=== PATIENT | male | born 1940 | race Caucasian/White ===

== ENCOUNTER 2016-12-07 08:00 | Outpatient (CLI) | payer MEDICARE, OTHER ==
[2016-12-07 13:24] LABS: CALCIUM 9.2 mg/dL (8.5-10.3); CREATININE 0.8 mg/dL (0.6-1.2); POTASSIUM 4.5 mmol/L (3.5-5.0)
== END 2016-12-07 08:01 | disposition home or self-care (01) ==
LOC: LAB.WCP 08:00
PROVIDERS: ATTEND Family Medicine
DX: R19.7 Diarrhea, unspecified (principal); R63.4 Abnormal weight loss
CPT/HCPCS: 36415; 80048

== ENCOUNTER 2016-12-10 06:35 | Outpatient (CLI) | payer MEDICARE, OTHER ==
[2016-12-10] MEDS ORDERED: IOPAMIDOL-300 100 ML VIAL IVP ONE (08:20)
--- NOTE | 2016-12-11 08:52 | CT Report ---
EXAM: CT ABDOMEN WITHOUT AND WITH CONTRAST EXAM DATE: 12/10/2016 08:01 AM. HISTORY: WEIGHT LOSS. COMPARISON: Previous exam of 12/03/2010. TECHNIQUE: Routine helical CT imaging was performed through the abdomen before and after administrati on of IV contrast: 100 cc of Isovue-300. Enteric contrast: Yes. Reconstruction: Coronal and sagittal. In accordance with CT protocol optimization, one or more of the following dose reduction techniques w ere utilized for this exam: automated exposure control, adjustment of mA and/or KV based on patient s ize, or use of iterative reconstructive technique. FINDINGS: Lung Bases: Minimal atelectatic changes seen at the lung bases. Liver: Stable hepatic cysts present. Gallbladder/Bile Ducts: Unremarkable. Spleen: Normal. Pancreas: Normal. No masses or ductal obstruction. Adrenal Glands: Normal. Kidneys: Normal. No masses or hydronephrosis. Peritoneal Cavity/Bowel: Normal. No free fluid, free air or adenopathy. No masses or acute inflammato ry process. Appendix not conclusively identified. Vasculature: There has been interval placement of an aorto iliac graft for infrarenal aortic aneurysm . No gross evidence of leak present. Bones: Probable bone island is seen in the vertebral body at L3. There is old fracture deformity invo lving the left lateral transverse process at L5. Mild degenerative changes otherwise seen. Other: Fat-containing left inguinal hernia. IMPRESSION: 1. Stable hepatic cysts noted. 2. Interval placement of aortic iliac graft for infrarenal aortic aneurysm without gross evidence of leak. 3. Probable bone island in the vertebral body at L3, with degenerative changes and old fracture defor mity involving left lateral transverse process at L5. 4. Fat-containing left inguinal hernia. [facility] Referring Provider Line: [phone] SITE ID: [id number]
== END 2016-12-10 06:36 | disposition home or self-care (01) ==
LOC: DI 06:35
PROVIDERS: ATTEND Family Medicine
DX: K76.89 Other specified diseases of liver (principal); M47.896 Other spondylosis, lumbar region; K40.90 Unilateral inguinal hernia, without obstruction or gangrene, not specified as recurrent
CPT/HCPCS: 74178; Q9967

== ENCOUNTER 2018-02-14 11:13 | Outpatient (CLI) | payer MEDICARE, OTHER ==
[2018-02-14 19:40] LABS: BILIRUBIN,URINE NEGATIVE (NEGATIVE); GLUCOSE, URINE (UA) NEGATIVE (NEGATIVE); KETONES,URINE (UA) NEGATIVE (NEGATIVE); LEUKOCYTE ESTERASE, URINE NEGATIVE (NEGATIVE); NITRITE,URINE NEGATIVE (NEGATIVE); OCCULT BLOOD,URINE NEGATIVE (NEGATIVE); PROTEIN,URINE NEGATIVE (NEGATIVE); UROBILINOGEN,URINE 0.2 (NORMAL) E.U./dL (NORMAL)
[2018-02-14 20:03] LABS: CLARITY,URINE CLEAR (CLEAR)
[2018-02-14 20:04] LABS: BACTERIA,URINE None Seen /HPF (None Seen); RBC,URINE None Seen /HPF (0-5); SQUAMOUS EPITHELIAL CELL,UR NONE SEEN (<= Few)
== END 2018-02-14 11:14 | disposition home or self-care (01) ==
LOC: LAB.WCP 11:13
PROVIDERS: ATTEND Family Medicine
DX: R35.0 Frequency of micturition (principal)
CPT/HCPCS: 36415; 81001; 84153; 87086

== ENCOUNTER 2018-10-15 09:42 | Outpatient (CLI) | payer MEDICARE, OTHER ==
[2018-10-15 12:33] LABS: BASOPHILS # (AUTO) 0.1 10^3/uL (0.0-0.1); EOSINOPHILS # (AUTO) 0.2 10^3/uL (0.0-0.7); EOSINOPHILS % (AUTO) 2.7 %; HGB - HEMOGLOBIN 15.1 g/dL (14.0-18.0); LYMPHOCYTES # (AUTO) 2.5 10^3/uL (1.5-3.5); LYMPHOCYTES % (AUTO) 35.5 %; MEAN CORPUSCULAR HEMOGLOBIN 32.3 pg (27.0-31.0); MEAN CORPUSCULAR HGB CONC 33.5 g/dL (32.0-36.0); MEAN CORPUSCULAR VOLUME 96.5 fL (80.0-94.0); MEAN PLATELET VOLUME 8.7 fL (7.4-11.4); MONOCYTES # (AUTO) 0.6 10^3/uL (0.0-1.0); MONOCYTES % (AUTO) 9.2 %; NEUTROPHILS # (AUTO) 3.6 10^3/uL (1.5-6.6); NEUTROPHILS % (AUTO) 51.6 %; PLT - PLATELET COUNT 207 10^3/uL (130-450); RED BLOOD COUNT 4.68 10^6/uL (4.70-6.10); RED CELL DISTRIBUTION WIDTH 14.1 % (12.0-15.0); WHITE BLOOD COUNT 6.9 x10^3/uL (4.8-10.8)
[2018-10-15 14:30] LABS: ALBUMIN/GLOBULIN RATIO 1.6 (1.0-2.2); ALKALINE PHOSPHATASE 52 IU/L (42-121); ALT ALANINE AMINOTRANSFERASE 14 IU/L (10-60); AST ASPARTATE AMINOTRANSFERASE 26 IU/L (10-42); BILIRUBIN,TOTAL 0.4 mg/dL (0.2-1.0); BUN - BLOOD UREA NITROGEN 18 mg/dL (6-20); CALCIUM 8.9 mg/dL (8.5-10.3); CARBON DIOXIDE - CO2 28 mmol/L (21-32); CHLORIDE 101 mmol/L (101-111); CHOL/HDL RATIO 2.5 (<5.0); CHOLESTEROL 149 mg/dL; CREATININE 0.8 mg/dL (0.6-1.2); GFR - MDRD 94 (>89); GLUCOSE 111 mg/dL (70-100); HDL CHOLESTEROL 59 mg/dL; LDL CHOLESTEROL,CALCULATED 81 mg/dL; LDL/HDL RATIO 1.4 (<3.6); SODIUM 136 mmol/L (135-145); TOTAL PROTEIN 6.5 g/dL (6.7-8.2); VLDL CHOLESTEROL 9 mg/dL
== END 2018-10-15 09:43 | disposition home or self-care (01) ==
LOC: LAB.WCP 09:42
PROVIDERS: ATTEND Family Medicine
DX: I10 Essential (primary) hypertension (principal); E78.5 Hyperlipidemia, unspecified
CPT/HCPCS: 36415; 80053; 80061; 83721; 85025

== ENCOUNTER 2019-01-02 08:23 | Outpatient (CLI) | payer MEDICARE, OTHER ==
[2019-01-02 12:51] LABS: BASOPHILS # (AUTO) 0.1 10^3/uL (0.0-0.1); BASOPHILS % (AUTO) 0.7 %; EOSINOPHILS # (AUTO) 0.3 10^3/uL (0.0-0.7); EOSINOPHILS % (AUTO) 4.1 %; HGB - HEMOGLOBIN 15.3 g/dL (14.0-18.0); LYMPHOCYTES # (AUTO) 1.9 10^3/uL (1.5-3.5); LYMPHOCYTES % (AUTO) 27.3 %; MEAN CORPUSCULAR HEMOGLOBIN 32.3 pg (27.0-31.0); MEAN CORPUSCULAR HGB CONC 32.5 g/dL (32.0-36.0); MEAN CORPUSCULAR VOLUME 99.6 fL (80.0-94.0); MEAN PLATELET VOLUME 10.2 fL (7.4-11.4); MONOCYTES # (AUTO) 0.8 10^3/uL (0.0-1.0); MONOCYTES % (AUTO) 11.3 %; NEUTROPHILS # (AUTO) 3.9 10^3/uL (1.5-6.6); NEUTROPHILS % (AUTO) 56.3 %; PLT - PLATELET COUNT 217 10^3/uL (130-450); RED BLOOD COUNT 4.73 10^6/uL (4.70-6.10); RED CELL DISTRIBUTION WIDTH 13.6 % (12.0-15.0); WHITE BLOOD COUNT 6.9 x10^3/uL (4.8-10.8)
[2019-01-02 14:11] LABS: ALT ALANINE AMINOTRANSFERASE 15 IU/L (10-60); AST ASPARTATE AMINOTRANSFERASE 25 IU/L (10-42); BILIRUBIN,TOTAL 0.8 mg/dL (0.2-1.0); BUN - BLOOD UREA NITROGEN 11 mg/dL (6-20); CALCIUM 9.5 mg/dL (8.5-10.3); CARBON DIOXIDE - CO2 29 mmol/L (21-32); CHLORIDE 98 mmol/L (101-111); CREATININE 0.8 mg/dL (0.6-1.2); GFR - MDRD 94 (>89); GLUCOSE 96 mg/dL (70-100); SODIUM 137 mmol/L (135-145)
[2019-01-02 14:12] LABS: ALBUMIN/GLOBULIN RATIO 1.5 (1.0-2.2); ALKALINE PHOSPHATASE 56 IU/L (42-121); PREALBUMIN 28 mg/dL (18-45); TOTAL PROTEIN 6.6 g/dL (6.7-8.2); VLDL CHOLESTEROL 14 mg/dL
[2019-01-02 14:13] LABS: CHOL/HDL RATIO 2.2 (<5.0); CHOLESTEROL 143 mg/dL; HDL CHOLESTEROL 65 mg/dL; LDL CHOLESTEROL,CALCULATED 64 mg/dL
== END 2019-01-02 23:59 | disposition home or self-care (01) ==
LOC: LAB.WCP 08:23
PROVIDERS: ATTEND Family Medicine
DX: I10 Essential (primary) hypertension (principal); Z12.5 Encounter for screening for malignant neoplasm of prostate; E78.5 Hyperlipidemia, unspecified
CPT/HCPCS: 36415; 80053; 80061; 83721; 84134; 84153; 84443; 85025

== ENCOUNTER 2019-01-02 09:41 | Outpatient (CLI) | payer MEDICARE, OTHER ==
--- NOTE | 2019-01-02 22:22 | CT Report ---
Reason: COPD,WEIGHT LOSS Procedure Date: 01/02/2019 Accession Number: [id number] / [id number] Procedure: CT - CHEST WO CPT Code: FULL RESULT: EXAM: CT CHEST EXAM DATE: 01/02/2019 09:56 AM. CLINICAL HISTORY: COPD,WEIGHT LOSS. COMPARISONS: None. TECHNIQUE: Routine helical CT imaging was performed through the chest. IV contrast: None. Reconstructions: Coronal and sagittal. In accordance with CT protocol optimization, one or more of the following dose reduction techniques were utilized for this exam: automated exposure control, adjustment of mA and/or KV based on patient size, or use of iterative reconstructive technique. FINDINGS: Lungs/Pleura: No suspicious nodularity, mass, or consolidation. Severe centrilobular and paraseptal emphysema, worse at the upper lobes. No pleural effusions. Diffuse nonspecific bronchial wall thickening, likely small airways disease. Mediastinum: Imaged portions of the thyroid are grossly unremarkable. Thoracic aorta and main pulmonary artery are normal caliber. Heart size is within normal limits. Severe three-vessel coronary artery calcifications. Cardiac leads are present. Dilated left ventricle and distal and apical subendocardial fat deposition consistent with prior infarction. No pericardial effusion. Lymph Nodes: No mediastinal, hilar, or axillary adenopathy. Bones: No suspicious osseous lesions. Visualized chest wall is grossly unremarkable. Partially Imaged Upper Abdomen: Multiple hepatic cysts. IMPRESSION: Severe emphysema, worse in the upper lobes. Severe three-vessel coronary artery calcifications. 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 [facility]
== END 2019-01-02 09:42 | disposition home or self-care (01) ==
LOC: DI 09:41
PROVIDERS: ATTEND Family Medicine
DX: J43.9 Emphysema, unspecified (principal); R63.4 Abnormal weight loss; I10 Essential (primary) hypertension; E78.5 Hyperlipidemia, unspecified; Z12.5 Encounter for screening for malignant neoplasm of prostate
CPT/HCPCS: 36415; 71250; 80061; 84134; G0103; 80053; 83721; 84153; 84443; 85025

== ENCOUNTER 2019-04-11 08:00 | Outpatient (CLI) | payer MEDICARE, OTHER ==
[2019-04-11 19:09] LABS: BILIRUBIN,URINE NEGATIVE (NEGATIVE); GLUCOSE, URINE (UA) NEGATIVE (NEGATIVE); KETONES,URINE (UA) NEGATIVE (NEGATIVE); LEUKOCYTE ESTERASE, URINE NEGATIVE (NEGATIVE); NITRITE,URINE NEGATIVE (NEGATIVE); OCCULT BLOOD,URINE TRACE-INTA (NEGATIVE); PH,URINE 6.5 PH (5.0-7.5); PROTEIN,URINE NEGATIVE (NEGATIVE); UROBILINOGEN,URINE 0.2 (NORMAL) E.U./dL (NORMAL)
[2019-04-11 19:26] LABS: CLARITY,URINE CLEAR (CLEAR)
== END 2019-04-11 23:59 | disposition home or self-care (01) ==
LOC: LAB.WCP 08:00
PROVIDERS: ATTEND Family Medicine
DX: R41.3 Other amnesia (principal); R39.15 Urgency of urination
CPT/HCPCS: 36415; 81001; 81003; 82607; 87086

== ENCOUNTER 2019-12-11 08:28 | Outpatient (CLI) | payer MEDICARE, OTHER ==
[2019-12-11 11:59] LABS: BASOPHILS # (AUTO) 0.1 10^3/uL (0.0-0.1); BASOPHILS % (AUTO) 0.7 %; EOSINOPHILS # (AUTO) 0.3 10^3/uL (0.0-0.7); EOSINOPHILS % (AUTO) 4.5 %; HGB - HEMOGLOBIN 15.7 g/dL (14.0-18.0); LYMPHOCYTES % (AUTO) 29.1 %; MEAN CORPUSCULAR HEMOGLOBIN 33.3 pg (27.0-31.0); MEAN CORPUSCULAR VOLUME 98.1 fL (80.0-94.0); MEAN PLATELET VOLUME 10.4 fL (7.4-11.4); MONOCYTES # (AUTO) 0.7 10^3/uL (0.0-1.0); MONOCYTES % (AUTO) 10.3 %; NEUTROPHILS # (AUTO) 3.8 10^3/uL (1.5-6.6); NEUTROPHILS % (AUTO) 55.1 %; PLT - PLATELET COUNT 211 10^3/uL (130-450); RED BLOOD COUNT 4.71 10^6/uL (4.70-6.10); RED CELL DISTRIBUTION WIDTH 13.2 % (12.0-15.0); WHITE BLOOD COUNT 6.9 x10^3/uL (4.8-10.8)
[2019-12-11 13:03] LABS: ALBUMIN/GLOBULIN RATIO 1.6 (1.0-2.2); ALKALINE PHOSPHATASE 59 IU/L (42-121); ALT ALANINE AMINOTRANSFERASE 14 IU/L (10-60); AST ASPARTATE AMINOTRANSFERASE 21 IU/L (10-42); BILIRUBIN,TOTAL 0.3 mg/dL (0.2-1.0); BUN - BLOOD UREA NITROGEN 12 mg/dL (6-20); CALCIUM 8.8 mg/dL (8.5-10.3); CARBON DIOXIDE - CO2 29 mmol/L (21-32); CHLORIDE 99 mmol/L (101-111); CHOLESTEROL 130 mg/dL; CREATININE 0.8 mg/dL (0.6-1.2); GLUCOSE 90 mg/dL (70-100); HDL CHOLESTEROL 64 mg/dL; LDL CHOLESTEROL,CALCULATED 58 mg/dL; LDL/HDL RATIO 0.9 (<3.6); SODIUM 135 mmol/L (135-145); TOTAL PROTEIN 6.5 g/dL (6.7-8.2); VLDL CHOLESTEROL 8 mg/dL
== END 2019-12-11 23:59 | disposition home or self-care (01) ==
LOC: LAB.WCP 08:28
PROVIDERS: ATTEND Family Medicine
DX: I25.10 Atherosclerotic heart disease of native coronary artery without angina pectoris (principal)
CPT/HCPCS: 36415; 80053; 80061; 83721; 85025

== ENCOUNTER 2019-12-20 08:00 | Outpatient (CLI) | payer MEDICARE, OTHER | END 2019-12-20 23:59 | disposition home or self-care (01) | LOC: LAB 08:00 | PROVIDERS: ATTEND Family Medicine | DX: R05 Cough (principal); Z20.828 Contact with and (suspected) exposure to other viral communicable diseases ==

== ENCOUNTER 2020-12-03 11:40 | Outpatient (CLI) | payer MEDICARE, OTHER ==
--- NOTE | 2020-12-03 13:16 | XRAY Report ---
PROCEDURE: Chest 2 View X-Ray INDICATIONS: CHRONIC COUGH TECHNIQUE: 2 view(s) of the chest. COMPARISON: None. FINDINGS: Surgical changes and devices: Left chest wall pacemaker lead is seen in the region of right ventricle .. Lungs and pleura: No pleural effusions or pneumothorax. There is hyperinflation. No focal infiltrate . Mediastinum: Mediastinal contours are normal. Heart size is normal. Bones and chest wall: No suspicious bony abnormalities. Soft tissues appear unremarkable. IMPRESSION: Hyperinflation. No focal infiltrate, pleural effusion or pneumothorax. Reviewed by: Torito Delacruz MD on 12/03/2020 1:15 PM PDT Approved by: Torito Delacruz MD on 12/03/2020 1:15 PM PDT Station ID: [id number]
== END 2020-12-03 23:59 | disposition home or self-care (01) ==
LOC: DI.N 11:40
PROVIDERS: ATTEND Physician Assistant Medical
DX: R05 Cough (principal); R91.8 Other nonspecific abnormal finding of lung field

== ENCOUNTER 2021-03-01 14:08 | Outpatient (CLI) | payer MEDICARE, OTHER | END 2021-03-01 14:09 | disposition home or self-care (01) | LOC: COV 14:08 | PROVIDERS: ATTEND Internal Medicine | DX: Z01.812 Encounter for preprocedural laboratory examination (principal); Z20.822 Contact with and (suspected) exposure to COVID-19 ==

== ENCOUNTER 2021-06-29 09:58 | Outpatient (CLI) | payer MEDICARE, OTHER ==
[2021-06-29 12:32] LABS: BASOPHILS # (AUTO) 0.1 10^3/uL (0.0-0.1); BASOPHILS % (AUTO) 0.7 %; EOSINOPHILS # (AUTO) 0.1 10^3/uL (0.0-0.7); EOSINOPHILS % (AUTO) 1.1 %; HCT - HEMATOCRIT 46.2 % (42.0-52.0); HGB - HEMOGLOBIN 15.4 g/dL (14.0-18.0); LYMPHOCYTES # (AUTO) 1.3 10^3/uL (1.5-3.5); LYMPHOCYTES % (AUTO) 18.7 %; MEAN CORPUSCULAR HEMOGLOBIN 32.1 pg (27.0-31.0); MEAN CORPUSCULAR HGB CONC 33.3 g/dL (32.0-36.0); MEAN CORPUSCULAR VOLUME 96.3 fL (80.0-94.0); MEAN PLATELET VOLUME 10.8 fL (7.4-11.4); MONOCYTES # (AUTO) 0.7 10^3/uL (0.0-1.0); MONOCYTES % (AUTO) 9.6 %; NEUTROPHILS % (AUTO) 69.5 %; PLT - PLATELET COUNT 175 10^3/uL (130-450); RED CELL DISTRIBUTION WIDTH 13.4 % (12.0-15.0); WHITE BLOOD COUNT 7.2 x10^3/uL (4.8-10.8)
[2021-06-29 12:51] LABS: THYROID STIMULATING HORMONE 3.25 uIU/mL (0.34-5.60)
[2021-06-29 13:01] LABS: ALBUMIN 3.9 g/dL (3.2-5.5); ALBUMIN/GLOBULIN RATIO 1.6 (1.0-2.2); BILIRUBIN,TOTAL 0.5 mg/dL (0.2-1.0); CALCIUM 8.9 mg/dL (8.5-10.3); POTASSIUM 4.9 mmol/L (3.5-5.0); TOTAL PROTEIN 6.4 g/dL (6.7-8.2)
== END 2021-06-29 23:59 | disposition home or self-care (01) ==
LOC: LAB.WCP 09:58
PROVIDERS: ATTEND Family Medicine
DX: R63.4 Abnormal weight loss (principal); R19.7 Diarrhea, unspecified
CPT/HCPCS: 36415; 80053; 84134; 84443; 85025

== ENCOUNTER 2021-07-01 08:00 | Outpatient (CLI) | payer MEDICARE, OTHER ==
[2021-07-01 13:47] LABS: FECAL OCCULT BLOOD (FIT) POSITIVE (NEGATIVE)
[2021-07-01 14:24] LABS: H. PYLORIS ANTIGEN STL NEGATIVE (Negative)
== END 2021-07-01 23:59 | disposition home or self-care (01) ==
LOC: LAB.WCP 08:00
PROVIDERS: ATTEND Family Medicine
DX: R19.7 Diarrhea, unspecified (principal); Z12.11 Encounter for screening for malignant neoplasm of colon
CPT/HCPCS: 81599; 82274; 83993; 87045; 87177; 87209; 87329; 87338; 87427; 87449; 87493

== ENCOUNTER 2022-04-03 08:00 | Outpatient (CLI) | payer MEDICARE, OTHER | END 2022-04-03 23:59 | disposition short-term general hospital (02) | LOC: EMS 08:00 | DX: I21.3 ST elevation (STEMI) myocardial infarction of unspecified site (principal) | CPT/HCPCS: A0425; A0427 ==

== ENCOUNTER 2022-04-25 10:21 | Outpatient (CLI) | payer MEDICARE, OTHER | END 2022-04-25 10:22 | disposition home or self-care (01) | LOC: LAB.N 10:21 | PROVIDERS: ATTEND Physician Assistant | DX: R78.81 Bacteremia (principal) | CPT/HCPCS: 87040 ==

== ENCOUNTER 2022-11-03 11:29 | Outpatient (CLI) | payer MEDICARE, OTHER | END 2022-11-03 11:30 | disposition home or self-care (01) | LOC: LAB.N 11:29 | PROVIDERS: ATTEND Physician Assistant | DX: Z53.9 Procedure and treatment not carried out, unspecified reason (principal) ==

== ENCOUNTER 2022-11-09 07:27 | Outpatient (CLI) | payer MEDICARE, OTHER | END 2022-11-09 07:28 | disposition home or self-care (01) | LOC: DI 07:27 | PROVIDERS: ATTEND Physician Assistant | DX: R78.81 Bacteremia (principal); I25.10 Atherosclerotic heart disease of native coronary artery without angina pectoris; F01.50 Vascular dementia, unspecified severity, without behavioral disturbance, psychotic disturbance, mood disturbance, and anxiety; R41.89 Other symptoms and signs involving cognitive functions and awareness; I51.7 Cardiomegaly; I34.0 Nonrheumatic mitral (valve) insufficiency; Z95.0 Presence of cardiac pacemaker; I87.8 Other specified disorders of veins; I51.3 Intracardiac thrombosis, not elsewhere classified | CPT/HCPCS: 36415; 80053; 80061; 82607; 83721; 84443; 85025; 86592; 87040; 93306 ==

== ENCOUNTER 2023-01-05 12:21 | Outpatient (CLI) | payer MEDICARE, OTHER ==
--- NOTE | 2023-01-05 13:15 | XRAY Report ---
PROCEDURE: Chest 2 View X-Ray INDICATIONS: EXPIRATORY WHEEZING TECHNIQUE: 2 views of the chest were acquired. COMPARISON: Chest x-ray 12/03/2020 FINDINGS: Surgical changes and devices: Pacemaker. Upper abdominal clips are present. Lungs and pleura: No pleural effusions or pneumothorax. Lungs are clear. Lungs are hyperexpanded suggestive COPD. Mediastinum: Mediastinal contours appear normal. Heart size is normal. Bones and chest wall: No suspicious bony lesions. Overlying soft tissues appear unremarkable. IMPRESSION: No acute cardiopulmonary process. Reviewed by: Leila Connelly MD on 01/05/2023 1:14 PM PDT Approved by: Leila Connelly MD on 01/05/2023 1:14 PM PDT Station ID: [id number]
== END 2023-01-05 12:22 | disposition home or self-care (01) ==
LOC: DI 12:21
PROVIDERS: ATTEND Physician Assistant Medical
DX: R06.2 Wheezing (principal)

== ENCOUNTER 2023-06-12 09:07 | Outpatient (CLI) | payer MEDICARE, OTHER | END 2023-06-12 23:59 | disposition critical access hospital (66) | LOC: EMS 09:07 | DX: R06.02 Shortness of breath (principal); Z20.828 Contact with and (suspected) exposure to other viral communicable diseases | CPT/HCPCS: A0425; A0427 ==

== ENCOUNTER 2023-06-12 09:22 | Emergency (ER) | payer MEDICARE, OTHER ==
--- NOTE | 2023-06-12 09:41 | ED Physician Documentation ---
PD HPI URI - Stated complaint Stated Complaint: COPD EXACERBATION - History obtained from History obtained from: Patient, Family (spouse), EMS - History of Present Illness Timing - onset: How many days ago (few days of increasing fevers, fatigue, dyspnea, and wheezing. General flu like symptoms, but also exac of COPD type symptoms.) Timing duration: Days Timing details: Abrupt onset, Still present Associated symptoms: Fever, Nasal congestion, Dry cough, Dyspnea. No: Hemoptysis, NVD Contributing factors: COPD / asthma. No: Sick contact, Immunocompromised Similar symptoms before: Has not had sx before Recently seen: Not recently seen Review of Systems Constitutional: reports: Chills, Myalgias, Fatigue Nose: reports: Congestion Throat: denies: Sore throat Respiratory: reports: Cough PD PAST MEDICAL HISTORY - Past Medical History Past Medical History: Yes Cardiovascular: Congestive heart failure, High cholesterol, Coronary artery disease Respiratory: COPD - Past Surgical History Past Surgical History: Yes Cardiovascular: Coronary stent - Present Medications Home Medications: Ambulatory Orders Medication Instructions Recorded Confirmed Aspirin [Aspir 81] 81 mg PO DAILY 01/26/14 06/12/23 Cyclobenzaprine [Flexeril] 10 mg PO DAILY 01/26/14 06/12/23 Ezetimibe/Simvastatin [Vytorin 1 tab PO DAILY 01/26/14 06/12/23 10-40 mg Tablet] Flaxseed Oil [Flax Seed Oil] 2,000 units PO DAILY 01/26/14 06/12/23 Ipratropium/Albuterol [Combivent 2 puffs INH Q6H PRN 01/26/14 06/12/23 Respimat] Metoprolol Tartrate 200 mg PO DAILY 01/26/14 06/12/23 Multivitamin [Multivitamins] 1 tab PO DAILY 01/26/14 06/12/23 lisinopriL [Lisinopril] 40 mg PO DAILY 01/26/14 06/12/23 Albuterol 2.5 mg INH Q4H PRN #30 ml 06/12/23 Albuterol Sulf [Ventolin Hfa 1 - 2 puffs INH Q4HR PRN #1 each 06/12/23 Inhaler] Amoxicillin 500 mg PO TID #15 cap 06/12/23 Oseltamivir [Tamiflu] 75 mg PO BID #10 cap 06/12/23 dexAMETHasone [Decadron] 4 mg PO DAILY #5 tablet 06/12/23 - Allergies Allergies/Adverse Reactions: Allergies Allergy/AdvReac Type Severity Reaction Status Date / Time No Known Drug Allergies Allergy Verified 06/12/23 09:33 - Social History Does the pt smoke?: Yes Smoking Status: Current every day smoker Does the pt drink ETOH?: Yes Does the pt have substance abuse?: No - Immunizations Immunizations are current?: Yes PD ED PE NORMAL - Vitals Vital signs reviewed: Yes - General General: Alert and oriented X 3, No acute distress, Well developed/nourished - HEENT HEENT: Pharynx benign - Neck Neck: Supple, no meningeal sign, No adenopathy - Cardiac Cardiac: RRR, No murmur - Respiratory Respiratory: No respiratory distress. No: Clear bilaterally (diffuse exp wheezing with some coarse sounds right base. No fine crackles. and heart sounds are crisp. ) Results - Vitals Vitals: Oxygen O2 Source Room air Oxygen Flow Rate 2 - Labs Labs: Laboratory Tests 06/12/23 06/12/23 06/12/23 09:50 09:53 09:53 WBC 12.0 H RBC 4.48 L Hgb 14.1 Hct 43.7 MCV 97.5 H MCH 31.5 H MCHC 32.3 RDW 13.7 Plt Count 150 MPV 9.2 Neut # (Auto) 10.3 H Lymph # (Auto) 1.2 L [place] # (Auto) 0.5 Eos # (Auto) 0.0 Baso # (Auto) 0.0 Absolute Nucleated RBC 0.00 Nucleated RBC % 0.0 Sodium 136 Potassium 3.8 Chloride 100 L Carbon Dioxide 29 Anion Gap 7.0 BUN 11 Creatinine 0.9 Estimated GFR (MDRD) 81 L Glucose 114 H Calcium 8.7 Magnesium 1.6 L Total Bilirubin 0.5 AST 23 ALT 10 Alkaline Phosphatase 46 Total Protein 6.1 L Albumin 3.9 Globulin 2.2 Albumin/Globulin Ratio 1.8 Lipase < 10 L Nasal Adenovirus (PCR) NOT DETECTED Nasal B. parapertussis DNA (PCR) NOT DETECTED Nasal Coronavir 229E PCR NOT DETECTED Nasal Coronavir HKU1 PCR NOT DETECTED Nasal Coronavir NL63 PCR NOT DETECTED Nasal Coronavir OC43 PCR NOT DETECTED Nasal Enterovir/Rhinovir PCR NOT DETECTED Nasal Influ A H1 2009 PCR DETECTED A Nasal Influenza B PCR NOT DETECTED Nasal Parainfluen 1 PCR NOT DETECTED Nasal Parainfluen 2 PCR NOT DETECTED Nasal Parainfluen 3 PCR NOT DETECTED Nasal Parainfluen 4 PCR NOT DETECTED Nasal RSV (PCR) NOT DETECTED Nasal B.pertussis DNA PCR NOT DETECTED Nasal C.pneumoniae (PCR) NOT DETECTED Otoniel Human Metapneumo PCR NOT DETECTED Nasal M.pneumoniae (PCR) NOT DETECTED Nasal SARS-CoV-2 (PCR) NOT DETECTED PD Medical Decision Making - ED course Complexity details: considered differential (has COPD with flaring of symptoms, and persistint cough. viral panel tests positive for Flu A.), d/w patient Departure - Departure Disposition: Home, Self Care Clinical Impression: Influenza A virus subtype H1 2009 pandemic strain present, COPD exacerbation, Dyspnea Condition: Stable Record reviewed to determine appropriate education?: Yes Instructions: ED Viral Syndrome Follow-Up: Stephy Rosado PA [Primary Care Provider] - Prescriptions: Albuterol Sulf [Ventolin Hfa Inhaler] 1 - 2 puffs INH Q4HR PRN #1 each PRN Reason: Shortness Of Air/Wheezing Albuterol 2.5 mg INH Q4H PRN #30 ml PRN Reason: Wheezing Amoxicillin 500 mg PO TID #15 cap dexAMETHasone [Decadron] 4 mg PO DAILY #5 tablet Oseltamivir [Tamiflu] 75 mg PO BID #10 cap Comments: You do have influenza A which is going to account for the large part of your symptoms of fatigue, body aches, cough and shortness of breath. However will flareup your COPD as well. Try to stay well-hydrated. Tylenol every 4-6 hours if needed for pains or fevers. For your breathing, I would urge that you use your nebulizer 4 times daily as it will provide a better delivery of the albuterol to help with your wheezing and breathing. This can be for the next several days to week. After that or alternatively you can use your albuterol inhaler 2 to 3 puffs 4 times daily regularly as well. We will add Tamiflu antiviral medication twice daily for 5 days to help with the flu virus. Also Decadron steroid daily for 5 days to help with bronchial inflammation as your COPD flares up. Given your underlying COPD, even though most of the symptoms are from a viral cause, there is still can be some flareup of bacterial colonization so we would typically go with an amoxicillin antibiotic for 5 days 2. Your oxygenation level is borderline on the level. It may not take much worsening of your flu and COPD to need supplemental. Return to the ER if you are having increasing shortness of breath or problems despite the above treatments. I sent your prescription to [facility] has that is the one of the 2 open today on the holiday. Follow-up with your primary care in the next few days. Return if worsening. Forms: PCP List Discharge Date/Time: 06/12/23 13:34
[2023-06-12] MEDS ORDERED: IPRATROPIUM/ALBUTEROL 3 ML NEB INH STA (09:43)
[2023-06-12] MEDS ORDERED: DEXAMETHASONE 10 MG/ML VIAL IVP STA (09:43)
[2023-06-12] MEDS ORDERED: ACETAMINOPHEN 500 MG TABLET PO STA (09:44)
[2023-06-12] MEDS ORDERED: KETOROLAC 15 MG/ML VIAL IVP STA (09:44)
[2023-06-12 09:59] LABS: BASOPHILS % (AUTO) 0.2 %; HCT - HEMATOCRIT 43.7 % (42.0-52.0); HGB - HEMOGLOBIN 14.1 g/dL (14.0-18.0); LYMPHOCYTES # (AUTO) 1.2 10^3/uL (1.5-3.5); LYMPHOCYTES % (AUTO) 9.8 %; MEAN CORPUSCULAR HEMOGLOBIN 31.5 pg (27.0-31.0); MEAN CORPUSCULAR HGB CONC 32.3 g/dL (32.0-36.0); MEAN CORPUSCULAR VOLUME 97.5 fL (80.0-94.0); MEAN PLATELET VOLUME 9.2 fL (7.4-11.4); MONOCYTES # (AUTO) 0.5 10^3/uL (0.0-1.0); NEUTROPHILS # (AUTO) 10.3 10^3/uL (1.5-6.6); NEUTROPHILS % (AUTO) 85.8 %; PLT - PLATELET COUNT 150 10^3/uL (130-450); RED BLOOD COUNT 4.48 10^6/uL (4.70-6.10); RED CELL DISTRIBUTION WIDTH 13.7 % (12.0-15.0)
--- NOTE | 2023-06-12 10:13 | XRAY Report ---
PROCEDURE: Chest 1V INDICATIONS: chest pain TECHNIQUE: One view of the chest was acquired. COMPARISON: 01/05/2023, 12/03/2020 FINDINGS: Surgical changes and devices: An AICD can be seen. Lungs and pleura: No pleural effusions or pneumothorax. Lungs are clear. Mediastinum: The aorta is prominent and tortuous. The cardiac contours are within normal limits. Bones and chest wall: No suspicious bony lesions. Age-appropriate degenerative changes are seen. Overlying soft tissues appear unremarkable. IMPRESSION: Portable chest within normal limits for age. Postoperative and degenerative changes are seen. Reviewed by: Noe Rodríguez MD on 06/12/2023 9:12 AM [facility] Approved by: Noe Rodríguez MD on 06/12/2023 9:12 AM [facility] Station ID: [id number]
[2023-06-12 10:15] LABS: ALBUMIN 3.9 g/dL (3.2-5.5); ALBUMIN/GLOBULIN RATIO 1.8 (1.0-2.2); ALKALINE PHOSPHATASE 46 IU/L (42-121); ALT ALANINE AMINOTRANSFERASE 10 IU/L (10-60); AST ASPARTATE AMINOTRANSFERASE 23 IU/L (10-42); BILIRUBIN,TOTAL 0.5 mg/dL (0.2-1.0); BUN - BLOOD UREA NITROGEN 11 mg/dL (6-20); CALCIUM 8.7 mg/dL (8.5-10.3); CARBON DIOXIDE - CO2 29 mmol/L (21-32); CHLORIDE 100 mmol/L (101-111); CREATININE 0.9 mg/dL (0.6-1.3); GFR - MDRD 81 (>89); GLUCOSE 114 mg/dL (74-104); MAGNESIUM 1.6 mg/dL (1.7-2.3); POTASSIUM 3.8 mmol/L (3.5-4.5); SODIUM 136 mmol/L (135-145); TOTAL PROTEIN 6.1 g/dL (6.4-8.9)
[2023-06-12 10:19] LABS: LIPASE < 10 U/L (11-82)
[2023-06-12 10:49] LABS: B. PARAPERTUSSIS- RESP PCR PAN NOT DETECTED; B. PERTUSSIS- RESP PCR PANEL NOT DETECTED; C. PNEUMONIAE- RESP PCR PANEL NOT DETECTED; CORONAVIRUS 229E-RESP PCR NOT DETECTED; CORONAVIRUS HKU1-RESP PCR NOT DETECTED; CORONAVIRUS NL63-RESP PCR NOT DETECTED; CORONAVIRUS OC43-RESP PCR NOT DETECTED; HUMAN METAPNEUMOVIRUS NOT DETECTED; INFLUENZA A H1 2009- RESP PCR DETECTED; INFLUENZA B - RESP PCR PANEL NOT DETECTED; M. PNEUMONIAE- RESP PCR PANEL NOT DETECTED; PARAINFLUENZA VIRUS 1 NOT DETECTED; PARAINFLUENZA VIRUS 2 NOT DETECTED; PARAINFLUENZA VIRUS 3 NOT DETECTED; PARAINFLUENZA VIRUS 4 NOT DETECTED; RHINOVIRUS/ENTEROVIRUS NOT DETECTED; RSV- RESP PCR PANEL NOT DETECTED; SARS-CoV-2 -RESP PCR PANEL NOT DETECTED
[2023-06-12] MEDS ORDERED: OSELTAMIVIR 75 MG CAPSULE PO STA (12:48)
[2023-06-12] MEDS ORDERED: ALBUTEROL NEB 2.5 MG/3 ML INH STA (12:49)
[2023-06-12] MEDS ORDERED: AMOXICILLIN 250 MG CAPSULE PO STA (12:49)
[2023-06-12 13:25] VITALS: BP 110/80; O2SAT 92
== END 2023-06-12 13:34 | disposition home or self-care (01) ==
LOC: EDUNIT# → ED 09:22 → SUPCPDRO 09:22 → ED 13:34
DX: J10.1 Influenza due to other identified influenza virus with other respiratory manifestations (principal); J44.1 Chronic obstructive pulmonary disease with (acute) exacerbation; I50.9 Heart failure, unspecified; E78.00 Pure hypercholesterolemia, unspecified; F17.200 Nicotine dependence, unspecified, uncomplicated; Z79.82 Long term (current) use of aspirin; Z79.899 Other long term (current) drug therapy
CPT/HCPCS: 36415; 71045; 80053; 83690; 83735; 85025; 87633; 94640; 96374; 99283; 99284; A9270

== ENCOUNTER 2023-06-13 17:10 | Outpatient (CLI) | payer MEDICARE, OTHER | END 2023-06-13 23:59 | disposition left against medical advice (07) | LOC: EMS 17:10 | DX: R07.9 Chest pain, unspecified (principal) ==

== ENCOUNTER 2023-10-21 05:46 | Outpatient (CLI) | payer MEDICARE, OTHER | END 2023-10-21 23:59 | disposition critical access hospital (66) | LOC: EMS 05:46 | DX: M54.9 Dorsalgia, unspecified (principal); R06.02 Shortness of breath; R19.7 Diarrhea, unspecified | CPT/HCPCS: A0425; A0429 ==

== ENCOUNTER 2023-10-21 06:03 | Emergency (ER) | payer MEDICARE, OTHER ==
[2023-10-21 06:47] LABS: BASOPHILS % (AUTO) 0.2 %; EOSINOPHILS % (AUTO) 0.1 %; HGB - HEMOGLOBIN 15.1 g/dL (14.0-18.0); LYMPHOCYTES # (AUTO) 0.7 10^3/uL (1.5-3.5); LYMPHOCYTES % (AUTO) 4.3 %; MEAN CORPUSCULAR HEMOGLOBIN 31.5 pg (27.0-31.0); MEAN CORPUSCULAR HGB CONC 32.8 g/dL (32.0-36.0); MEAN PLATELET VOLUME 9.4 fL (7.4-11.4); MONOCYTES # (AUTO) 0.7 10^3/uL (0.0-1.0); MONOCYTES % (AUTO) 4.4 %; NEUTROPHILS # (AUTO) 15.3 10^3/uL (1.5-6.6); NEUTROPHILS % (AUTO) 90.6 %; PLT - PLATELET COUNT 188 10^3/uL (130-450); RED BLOOD COUNT 4.79 10^6/uL (4.70-6.10); RED CELL DISTRIBUTION WIDTH 13.2 % (12.0-15.0); WHITE BLOOD COUNT 16.9 x10^3/uL (4.8-10.8)
[2023-10-21] MEDS: oxyCODONE 5 MG TABLET PO STA (07:18)
[2023-10-21] MEDS: OLANZapine ODT 5 MG TABLET TL ONE (07:18)
[2023-10-21] MEDS: METOPROLOL SUCCINATE 50 MG TABLET PO STA (07:19)
[2023-10-21 07:36] LABS: ALBUMIN 4.3 g/dL (3.2-5.5); BILIRUBIN,TOTAL 0.7 mg/dL (0.2-1.0); CALCIUM 9.6 mg/dL (8.5-10.3); CREATININE 0.8 mg/dL (0.6-1.3); POTASSIUM 3.8 mmol/L (3.5-4.5); TOTAL PROTEIN 6.4 g/dL (6.4-8.9)
--- NOTE | 2023-10-21 07:59 | ED Physician Documentation ---
PD HPI BACK PAIN - Stated complaint Stated Complaint: BACK PAIN - Chief complaint Chief Complaint: Back Pain - History obtained from History obtained from: Patient, Family ( history from patient is compromised by mild dementia) - History of Present Illness Timing - onset: Last night Timing - duration: Hours Timing - details: Abrupt onset, Still present, Waxing and waning Location: Mid, Right Quality: Pain, Spasm, Sharp Associated symptoms: Other (coughing worse than normal and short of breath). No: Fever, Weakness, Numbness, Incontinent of urine, Unable to urinate, Hematuria, Incontinent of stool Improves with: Rest, Position Worsened by: Movement, Other (deep breathing) Contributing factors: Other (COPD cough worse than normal) Similar symptoms before: Has not had sx before Recently seen: Not recently seen - Additional information Additional information: Mk Maciel is an 83-year-old male with a history of hypertension and COPD who uses a nebulizer and takes 200 mg of metoprolol daily. He is presenting to the emergency department this morning after developing some back pain and agitation beginning last night. His agitation was intermittent his back pain is worse with deep breathing and is located on the right flank area. He is complaining of a cough worse than usual with audible phlegm and shortness of breath worse than usual. He has not had this much shortness of breath since he had influenza in June of this year. That was last time he had to use a course of prednisone.He does have some mild dementia and history is taken from the patient and his . Review of Systems Constitutional: denies: Fever Eyes: denies: Decreased vision Ears: denies: Ear pain Nose: reports: Rhinorrhea / runny nose (profuse non-stop) Throat: denies: Sore throat Cardiac: denies: Chest pain / pressure, Palpitations, Pedal edema, Calf pain Respiratory: reports: Dyspnea, Cough, Wheezing GI: reports: Diarrhea. denies: Abdominal Pain, Nausea, Vomiting, Constipation : denies: Dysuria, Frequency Skin: denies: Rash Musculoskeletal: reports: Back pain. denies: Neck pain, Extremity pain Neurologic: denies: Generalized weakness, Focal weakness, Numbness PD PAST MEDICAL HISTORY - Past Medical History Past Medical History: Yes Cardiovascular: Congestive heart failure, High cholesterol, Coronary artery disease, Other Respiratory: COPD Neuro: Dementia - Past Surgical History Past Surgical History: Yes Cardiovascular: Coronary stent - Present Medications Home Medications: Ambulatory Orders Medication Instructions Recorded Confirmed Aspirin [Aspir 81] 81 mg PO DAILY 01/26/14 06/12/23 Cyclobenzaprine [Flexeril] 10 mg PO DAILY 01/26/14 06/12/23 Ezetimibe/Simvastatin [Vytorin 1 tab PO DAILY 01/26/14 06/12/23 10-40 mg Tablet] Flaxseed Oil [Flax Seed Oil] 2,000 units PO DAILY 01/26/14 06/12/23 Ipratropium/Albuterol [Combivent 2 puffs INH Q6H PRN 01/26/14 06/12/23 Respimat] Metoprolol Tartrate 200 mg PO DAILY 01/26/14 06/12/23 Multivitamin [Multivitamins] 1 tab PO DAILY 01/26/14 06/12/23 lisinopriL [Lisinopril] 40 mg PO DAILY 01/26/14 06/12/23 Albuterol 2.5 mg INH Q4H PRN #30 ml 06/12/23 Albuterol Sulf [Ventolin Hfa 1 - 2 puffs INH Q4HR PRN #1 each 06/12/23 Inhaler] Amoxicillin 500 mg PO TID #15 cap 06/12/23 Oseltamivir [Tamiflu] 75 mg PO BID #10 cap 06/12/23 dexAMETHasone [Decadron] 4 mg PO DAILY #5 tablet 06/12/23 Amox/Clav 875/125 [Augmentin] 1 each PO Q12H #20 tablet 10/21/23 Azithromycin [Zithromax] 250 mg PO DAILY #6 tablet 10/21/23 predniSONE [Deltasone] 10 mg PO ONCE #26 tablet 10/21/23 - Allergies Allergies/Adverse Reactions: Allergies Allergy/AdvReac Type Severity Reaction Status Date / Time No Known Drug Allergies Allergy Verified 10/21/23 06:21 - Social History Does the pt smoke?: Yes Smoking Status: Current every day smoker Does the pt drink ETOH?: Yes Does the pt have substance abuse?: No - Immunizations Immunizations are current?: Yes - POLST Patient has POLST: No PD ED PE NORMAL - Vitals Vital signs reviewed: Yes (hypertensive mild temp is a tick off) - General General: No acute distress, Well developed/nourished, Other (after receiving oxycodone the patient appears comfortable at rest and has mild tachypnea without audible wheeze) - HEENT HEENT: Atraumatic, PERRL, EOMI - Neck Neck: Supple, no meningeal sign, No bony TTP - Cardiac Cardiac: RRR, No murmur - Respiratory Respiratory: Other (mild tachypnea with bibasilar rhonchi mid chest R side rhonchi is mild ) - Abdomen Abdomen: Soft, Non tender - Back Back: No CVA TTP, No spinal TTP - Derm Derm: Normal color, Warm and dry, No rash - Extremities Extremities: No deformity, No edema - Neuro Neuro: garbage man 2-12 intact, No motor deficit, No sensory deficit, Normal speech Eye Opening: Spontaneous Motor: Obeys Commands Verbal: Confused GCS Score: 14 Results - Vitals Vitals: Vital Signs - 24 hr 10/21/23 10/21/23 10/21/23 06:16 06:21 08:08 Temperature 37.7 C Heart Rate 78 80 69 Respiratory 20 18 20 Rate Blood Pressure 138/68 H 133/75 H 114/66 O2 Saturation 95 95 93 If not protocol 2 : Oxygen Flow, liters/minute 10/21/23 08:14 Temperature Heart Rate 80 Respiratory 22 Rate Blood Pressure O2 Saturation If not protocol : Oxygen Flow, liters/minute Oxygen O2 Source Room air - EKG (time done) 0703 EKG releavant findings:: EKG personally interpreted by author of this note. Relevant findings are: Rate: Rate (enter#) (81) Rhythm: LAE [place]: LAD Intervals: Wide QRS Ischemia: Q waves (inferior) Compare to prior EKG: Changed from prior EKG (SPT 08-17-2012 the rate is faster This tracing is likely LBBB) - Labs Labs: Laboratory Tests 10/21/23 10/21/23 06:23 06:23 WBC 16.9 H RBC 4.79 Hgb 15.1 Hct 46.0 MCV 96.0 H MCH 31.5 H MCHC 32.8 RDW 13.2 Plt Count 188 MPV 9.4 Neut # (Auto) 15.3 H Lymph # (Auto) 0.7 L [place] # (Auto) 0.7 Eos # (Auto) 0.0 Baso # (Auto) 0.0 Absolute Nucleated RBC 0.00 Nucleated RBC % 0.0 Sodium 133 L Potassium 3.8 Chloride 97 L Carbon Dioxide 28 Anion Gap 8.0 BUN 12 Creatinine 0.8 Estimated GFR (MDRD) 93 Glucose 114 H Calcium 9.6 Total Bilirubin 0.7 AST 23 ALT 12 Alkaline Phosphatase 54 Troponin I High Sens 13.0 Total Protein 6.4 Albumin 4.3 Globulin 2.1 Albumin/Globulin Ratio 2.0 Lipase 22 - Rads (name of study) chest Relevant Findings:: Prelim report reviewed (Impression: 1 hyperinflated lungs. New patchy airspace disease right upper lobe possibly pneumonic.), EMP independent interpretation of test PD Medical Decision Making - ED course Complexity details: reviewed old records, reviewed results, re-evaluated patient, considered differential, d/w patient, d/w family Social Determinants of Health: We reviewed a complete blood count showing an elevated white blood cell count of 16.9 with normal hemoglobin hematocrit and platelets and normal indices. The chemistries showed a sodium low at 133 the remainder of the electrolytes kidney and liver function all normal high-sensitivity troponin normal at 13. And lieu of this patient's finding on chest x-ray I am seeing the white blood cell count elevated at 16.9 is likely a response to a pneumonia. A normal high-sensitivity troponin after symptoms all night suggest this is not related to a coronary syndrome. ED course: Mk Maciel presents to the emergency department with back pain and agitation. He has had a cough worse than his usual for about the past 4 days and he appears to have a subtle infiltrate on his chest x-ray. He has physical exam findings to corroborate a diagnosis of pneumonia. He is treated with a dose of dexamethasone, a DuoNeb treatment and IV Rocephin. Departure - Departure Disposition: 01 Home, Self Care Clinical Impression: COPD with acute exacerbation Pneumonia Qualifiers: Pneumonia type: due to unspecified organism Laterality: right Lung location: upper lobe of lung Qualified Code(s): J18.9 - Pneumonia, unspecified organism Condition: Stable Instructions: ED COPD Flare, ED Pneumonia Adult Follow-Up: Stephy Rosado PA [Provider Admit Priv/Credential] - Prescriptions: Amox/Clav 875/125 [Augmentin] 1 each PO Q12H #20 tablet predniSONE [Deltasone] 10 mg PO ONCE #26 tablet Azithromycin [Zithromax] 250 mg PO DAILY #6 tablet Comments: Mk today it looks like you have an exacerbation of your COPD and this is likely due to a pneumonia. I have E scribed some antibiotic and steroid for you to the [facility] in [place]. Our expectations with treatment are day by day improvement in your cough and shortness of breath. We have made arrangements for social work to come to your house for further evaluation of your needs at home.
[2023-10-21] MEDS: DEXAMETHASONE 10 MG/ML VIAL IVP STA (08:06)
[2023-10-21] MEDS: cefTRIAXone 1 GM in SODIUM CHLORIDE 0.9% MINIBAG 100 ML IV STA (08:06)
[2023-10-21] MEDS: IPRATROPIUM/ALBUTEROL 3 ML NEB INH STA (08:11)
--- NOTE | 2023-10-21 08:59 | XRAY Report ---
PROCEDURE: Chest 1V INDICATIONS: Chest pain TECHNIQUE: One view of the chest was acquired. COMPARISON: Chest x-ray 06/12/2023 FINDINGS: Surgical changes and devices: Pacemaker. Lungs and pleura: Patchy appearance of right upper lobe opacity. Mediastinum: Mediastinal contours appear normal. Heart size is normal. Bones and chest wall: No suspicious bony lesions. Overlying soft tissues appear unremarkable. IMPRESSION: Patchy right upper lobe opacity suspicious for developing airspace disease such as pneumonia. The above findings are concordant with preliminary report. Reviewed by: Leila Connelly MD on 10/21/2023 8:58 AM PDT Approved by: Leila Connelly MD on 10/21/2023 8:58 AM PDT Station ID: [id number]
[2023-10-21 09:56] VITALS: BP 104/52; O2SAT 94
== END 2023-10-21 09:57 | disposition home or self-care (01) ==
LOC: EDUNIT# → ED 06:03
DX: J44.1 Chronic obstructive pulmonary disease with (acute) exacerbation (principal); J18.9 Pneumonia, unspecified organism; I11.0 Hypertensive heart disease with heart failure; I50.9 Heart failure, unspecified; E78.00 Pure hypercholesterolemia, unspecified; F03.90 Unspecified dementia, unspecified severity, without behavioral disturbance, psychotic disturbance, mood disturbance, and anxiety; F17.200 Nicotine dependence, unspecified, uncomplicated; Z79.82 Long term (current) use of aspirin; Z79.899 Other long term (current) drug therapy
CPT/HCPCS: 36415; 71045; 80053; 83690; 84484; 85025; 93005; 94640; 96365; 96375; 99284; A9270

== ENCOUNTER 2024-01-31 08:32 | Outpatient (CLI) | payer MEDICARE, OTHER ==
[2024-01-31 08:54] LABS: BASOPHILS % (AUTO) 0.6 %; EOSINOPHILS # (AUTO) 0.2 10^3/uL (0.0-0.7); EOSINOPHILS % (AUTO) 2.2 %; HCT - HEMATOCRIT 46.3 % (42.0-52.0); HGB - HEMOGLOBIN 15.2 g/dL (14.0-18.0); LYMPHOCYTES # (AUTO) 1.5 10^3/uL (1.5-3.5); LYMPHOCYTES % (AUTO) 22.3 %; MEAN CORPUSCULAR HEMOGLOBIN 31.9 pg (27.0-31.0); MEAN CORPUSCULAR HGB CONC 32.8 g/dL (32.0-36.0); MEAN CORPUSCULAR VOLUME 97.3 fL (80.0-94.0); MONOCYTES # (AUTO) 0.6 10^3/uL (0.0-1.0); MONOCYTES % (AUTO) 9.5 %; NEUTROPHILS # (AUTO) 4.4 10^3/uL (1.5-6.6); NEUTROPHILS % (AUTO) 65.1 %; PLT - PLATELET COUNT 200 10^3/uL (130-450); RED BLOOD COUNT 4.76 10^6/uL (4.70-6.10); RED CELL DISTRIBUTION WIDTH 12.9 % (12.0-15.0); WHITE BLOOD COUNT 6.8 x10^3/uL (4.8-10.8)
[2024-01-31 09:12] LABS: ALBUMIN/GLOBULIN RATIO 1.7 (1.0-2.2); ALKALINE PHOSPHATASE 47 IU/L (42-121); ALT ALANINE AMINOTRANSFERASE 12 IU/L (10-60); AST ASPARTATE AMINOTRANSFERASE 21 IU/L (10-42); BILIRUBIN,TOTAL 0.5 mg/dL (0.2-1.0); BUN - BLOOD UREA NITROGEN 12 mg/dL (6-20); CARBON DIOXIDE - CO2 32 mmol/L (21-32); CHLORIDE 98 mmol/L (101-111); CHOL/HDL RATIO 2.1 (<5.0); CHOLESTEROL 160 mg/dL; CREATININE 0.8 mg/dL (0.6-1.3); GFR - MDRD 93 (>89); GLUCOSE 106 mg/dL (74-104); HDL CHOLESTEROL 75 mg/dL; LDL CHOLESTEROL,CALCULATED 74 mg/dL; POTASSIUM 4.4 mmol/L (3.5-4.5); SODIUM 134 mmol/L (135-145); TOTAL PROTEIN 6.3 g/dL (6.4-8.9); TRIGLYCERIDES 53 mg/dL; VLDL CHOLESTEROL 11 mg/dL
[2024-01-31 09:28] LABS: THYROID STIMULATING HORMONE 2.88 uIU/mL (0.34-5.60)
[2024-01-31 09:55] LABS: ESTIMATED AVERAGE GLUCOSE 108 mg/dL (70-100); HEMOGLOBIN A1c% 5.4 % (4.27-6.07)
== END 2024-01-31 08:33 | disposition home or self-care (01) ==
LOC: LAB 08:32
PROVIDERS: ATTEND Physician Assistant
DX: I10 Essential (primary) hypertension (principal); R73.01 Impaired fasting glucose
CPT/HCPCS: 36415; 80053; 80061; 83036; 83721; 84443; 85025